=== PATIENT | female | born 1965 | race Caucasian/White ===

== ENCOUNTER 2017-09-17 07:16 | Emergency (ER) | payer OTHER ==
[~2017-09-17] VITALS: Ht 162.6 cm; Wt 73.6 kg
[2017-09-17 07:18] VITALS: BP 153/99
[2017-09-17] MEDS ORDERED: LIDOCAINE-MPF 2% ,5ML ONE (07:42)
[2017-09-17] MEDS ORDERED: TRIAMCINOLONE ACETONIDE 40 MG/ML, 1ML IM ONE (08:00)
[2017-09-17] MEDS ORDERED: LIDOCAINE-MPF 2% ,5ML INFIL ONE (08:00)
== END 2017-09-17 08:22 | disposition home or self-care (01) ==
LOC: ED 07:40
DX: M65.141 Other infective (teno)synovitis, right hand (principal)
CPT/HCPCS: 96372; 99281; 99283

== ENCOUNTER 2019-11-10 23:44 | Emergency (ER) | payer OTHER ==
[~2019-11-10] VITALS: Ht 162.6 cm; Wt 89.0 kg
[2019-11-11] MEDS ORDERED: DEXAMETHASONE 4 MG TABLET ONE (00:20)
--- NOTE | 2019-11-11 00:29 | NUR ---
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 SHE PRESENTS TO THE ER AFTER BEING SENT FROM WORK WHEN SHE DEVELOPED A SCRATCHY THROAT "IT FEELS LIKE GLASS IN MY THROAT." VOICE NOTED TO BE HORSE. PT STATES SHE'S HAD STREP AND MONO IN THE PAST AND THAT IT "FEELS LIKE STREP." PT DENIES SOB. SHE REMAINS CONNECTED TO THE CARDIAC, BP AND O2 MONITORS. SHE STATES HER BASELINE BP IS 140S/90S.
[2019-11-11] MEDS ORDERED: DEXAMETHASONE 4 MG TABLET PO ONE (00:30)
--- NOTE | 2019-11-11 01:08 | NUR ---
PT STATES SOME RELIEF FROM THE DECADRON, "IT'S EASIER TO SWALLOW." CHART PLACED FOR RECHECK.
[2019-11-11 01:30] VITALS: BP 141/99
== END 2019-11-11 01:50 | disposition home or self-care (01) ==
LOC: ED 11-11 01:38
DX: J02.8 Acute pharyngitis due to other specified organisms (principal); R05 Cough; Z20.828 Contact with and (suspected) exposure to other viral communicable diseases
CPT/HCPCS: 36415; 87081; 87635; 87880; 99283